=== PATIENT | male | born 1935 | race Caucasian/White ===

== ENCOUNTER 2024-09-23 09:00 | Outpatient (CLI) | payer MEDICARE, SELFPAY ==
--- NOTE | ~2024-09-23 | XR_ITS ---
AP and lateral views of the right hip, and AP view of the pelvis Clinical history: Pain Findings: No acute fracture or dislocation is seen. Osseous alignment is anatomic. Right hip joint is intact. Soft tissues are unremarkable. Prostate gland radiation disease noted. There is degenerative change of the visualized lower lumbar spine. Impression: Unremarkable right hip joint. Degenerative change of the lower lumbar spine. Reviewed, dictated and finalized at location . Impression: Unremarkable right hip joint. Degenerative change of the lower lumbar spine.
--- NOTE | ~2024-09-23 | XR_ITS ---
Lumbosacral Spine: AP and lateral views Clinical History: Pain Findings: There is dextroscoliosis. No definite fracture or subluxation evident. 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 The sacroiliac joints are normally outlined. 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 Reviewed, dictated and finalized at location . 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
[2024-09-23 10:08] LABS: Add Urine Microscopic? NO; Appearance Urine Clear (Clear); Bilirubin Urine Negative (Negative); Blood Urine Negative (Negative); Color Urine Yellow (Yellow); Glucose Urine UA Negative (Negative); Ketones Urine Negative (Negative); Leukocyte Esterase Ur Negative (Negative); Nitrate Urine Negative (Negative); Protein Urine Negative (Negative); pH Urine 7.5 (5.0-8.0)
[2024-09-23 10:48] LABS: Alanine Aminotransferase 24 U/L (16-63); Albumin Level 3.7 g/dL (3.4-5.0); Alkaline Phosphatase 99 U/L (46-116); Anion Gap 7 mmol/L (4-12); Aspartate Amino Transferase < 10 U/L (15-37); Bilirubin,Total 1.1 mg/dL (0.00-1.00); Blood Urea Nitrogen 14 mg/dL (7-18); CRP 0.5 mg/dL (0.0-0.9); Calcium 9.4 mg/dL (8.5-10.1); Carbon Dioxide 30 mmol/L (21-32); Chloride 106 mmol/L (98-108); Cholesterol 124 mg/dL (0-200); Creatine Kinase 117 U/L (39-308); Estimated Glomerular Filt Rate > 60; Glucose 94 mg/dL (70-99); HDL Direct 59 mg/dL (40-60); LDL Cholesterol Calculated 54 mg/dL (<130); Osmolality Calculated 296 mOsm/kg (285-295); Potassium 4.1 mmol/L (3.5-5.1); Sodium 143 mmol/L (136-145); Thyroid Stimulating Hormone 1.47 uIU/mL (0.36-3.74); Total Protein 6.6 g/dL (6.4-8.2); Triglycerides 56 mg/dL (0-150)
[2024-09-23 10:51] LABS: Prostate Specific Antigen < 0.1 ng/mL (< OR = 4.0)
[2024-09-23 12:12] LABS: Hemoglobin 13.9 g/dL (12.4-15.3); Mean Corpuscular HGB Conc 31.6 g/dL (32-36); Mean Corpuscular Hemoglobin 30.3 pg (27.0-31.0); Mean Corpuscular Volume 96.1 fL (78.0-102.0); Mean Platelet Volume 10.8 fl (8.7-11.0); Platelet Count Result 287 K/mm3 (150-420); Red Blood Count 4.58 M/mm3 (4.70-6.10); Red Cell Distribution Width 13.3 % (11.6-14.4); White Blood Count 7.2 K/mm3 (4.8-10.8)
[2024-09-24 09:08] LABS: Vitamin D 25 Hydroxy 38 ng/mL (30-100)
[2024-09-25 22:34] LABS: Parathyroid Intact 36 pg/mL (16-77)
== END 2024-09-23 09:01 | disposition home or self-care (01) ==
PROVIDERS: PCP Internal Medicine; Visit Provider Internal Medicine
DX: M54.50 Low back pain, unspecified (principal); I10 Essential (primary) hypertension; E78.5 Hyperlipidemia, unspecified; E55.9 Vitamin D deficiency, unspecified; N42.9 Disorder of prostate, unspecified
CPT/HCPCS: 36415; 72100; 73502; 80053; 80061; 81003; 82306; 82550; 83735; 83970; 84153; 84443; 85027; 86140

== ENCOUNTER 2024-10-26 08:13 | Outpatient (CLI) | payer MEDICARE, SELFPAY ==
--- NOTE | ~2024-10-26 | MR_ITS ---
MRI of the brain Clinical History: Dementia Technique: Axial and sagittal T1-weighted images were acquired. These were followed by axial T2-weigh aggie, diffusion weighted, gradient, and FLAIR images. Findings: There is no acute infarct, intracranial hemorrhage, or mass lesion. There are moderate to s evere chronic white matter changes in the periventricular white matter, compatible with chronic micro vascular ischemic change. 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 Ventricles and subarachnoid spaces are dilated. Orbits are unremarkable. Paranasal sinuses and mastoi d air cells are clear. Major intracranial flow voids are intact. Sagittal midline structures are intact. IMPRESSION: No acute hemorrhage, acute infarct, or mass lesion. Moderate to advanced chronic microvascular ischemic change and mild to moderate generalized atrophy. Reviewed, dictated and finalized at [facility].
== END 2024-10-26 08:14 | disposition home or self-care (01) ==
LOC: CHSIMG 08:15
PROVIDERS: PCP Internal Medicine; Visit Provider Internal Medicine
DX: I62.9 Nontraumatic intracranial hemorrhage, unspecified (principal)
CPT/HCPCS: 70551